=== PATIENT | male | born 1930 | race Caucasian/White ===

== ENCOUNTER 2016-08-27 14:26 | Emergency (ER) | payer MEDICARE, BC ==
--- NOTE | 2016-08-27 15:06 | EDM.PDOC ---
ED HPI ENT - General Chief Complaint: ENT Problem Stated Complaint: [id number] BLOODY NOSE CANT GET STOPPED Time Seen by Provider: 08/27/16 15:04 Source of Information: Reports: Patient History Limitations: Reports: No limitations - History of Present Illness INITIAL COMMENTS - FREE TEXT/NARRATIVE: Pt states that he has had left sided nasal bleeding since 11 am. Symptom Onset Date: 08/27/16 Timing/Duration: Reports: Constant Location: Reports: left nares Associated Symptoms: Reports: no other symptoms - Related Data Allergies/ADRs: Allergies Allergy/AdvReac Type Severity Reaction Status Date / Time alendronate sodium Allergy Nausea and Verified 08/27/16 14:31 [From Fosamax] Vomiting hydrochlorothiazide Allergy Cannot Verified 08/27/16 14:31 Remember oxybutynin Allergy Lethargy Verified 08/27/16 14:31 Sulfa (Sulfonamide Allergy Nausea and Verified 08/27/16 14:31 Antibiotics) Vomiting terazosin Allergy Cannot Verified 08/27/16 14:31 Remember Home Meds: Home Meds Calcium Carbonate/Vitamin D3 [Calcium 600 + Vit D Tablet] 1 each PO TID [History] Finasteride [Proscar] 5 mg PO DAILY 05/22/14 [History] Fosinopril [Monopril] 5 mg PO DAILY 05/22/14 [History] Iron Polysaccharides Complex [Ferrex 150] 150 mg PO DAILY 05/22/14 [History] Multivit-Min/FA/Lycopene/Lut [Centrum Silver] 1 each PO DAILY 05/22/14 [History] [place]-3S/DHA/Epa/Fish Oil/D3 [Fish Oil + D3 Softgel] 1 cap PO DAILY 05/22/14 [ History] Omeprazole Magnesium [Prilosec Otc] 20 mg PO DAILY 05/22/14 [History] Past Medical History Cardiovascular History: Reports: Hypertension Gastrointestinal History: Reports: GERD Genitourinary History: Reports: BPH Musculoskeletal History: Reports: Fracture Other Musculoskeletal History: pelvic, shoulder Oncologic (Cancer) History: Reports: Malignant melanoma - Infectious Disease History Infectious Disease History: Reports: Chicken pox - Past Surgical History HEENT Surgical History: Reports: Cataract surgery, Tonsillectomy Social & Family History - Family History Family Medical History: Noncontributory - Tobacco Use Smoking Status *Q: Former Smoker - Caffeine Use Caffeine Use: Reports: Coffee - Alcohol Use Days Per Week of Alcohol Use: 7 Number of Drinks Per Day: 1 Total Drinks Per Week: 7 - Recreational Drug Use Recreational Drug Use: No ED ROS ENT - Review of Systems Review Of Systems: See Below HEENT: Reports: Nosebleed ED EXAM, ENT - Physical Exam Exam: See Below Exam Limited By: No limitations General Appearance: alert, WD/WN, no apparent distress Nose: dried blood, injected turbinates, other (no active bleeding noted. ) Respiratory/Chest: no respiratory distress, lungs clear, normal breath sounds, no accessory muscle use, chest non-tender Cardiovascular: normal peripheral pulses, regular rate, rhythm, no edema, no gallop, no JVD, no murmur, no rub Course - Vital Signs Last Recorded V/S: Last Vital Signs Temp 97.9 F 08/27/16 14:32 Pulse 86 08/27/16 14:32 Resp 16 08/27/16 14:32 BP 170/94 H 08/27/16 15:47 Pulse Ox 96 08/27/16 14:32 - Orders/Labs/Meds Labs: Laboratory Tests 08/27/16 Range/Units 15:12 WBC 6.0 (5.0-10.0) 10^3/uL RBC 4.37 L (4.6-6.2) 10^6/uL Hgb 13.6 L (14.0-18.0) g/dL Hct 41.8 (40.0-54.0) % MCV 95.7 (80-100) fL MCH 31.1 (27.0-34.0) pg MCHC 32.5 L (33.0-35.0) g/dL Plt Count 147 L (150-450) 10^3/uL Neut % (Auto) 65.6 (42.2-75.2) % Lymph % (Auto) 19.5 L (20.5-50.1) % [place] % (Auto) 12.4 H (2-8) % Eos % (Auto) 2.2 (1.0-3.0) % Baso % (Auto) 0.3 (0.0-1.0) % Meds: Medications Discontinued Medications Generic Name Dose Route Start Last Admin Trade Name Freq PRN Reason Stop Dose Admin Clonidine HCl 0.1 mg 08/27/16 15:42 08/27/16 15:47 Catapres PO 08/27/16 15:43 0.1 mg ONETIME ONE Administration - Re-Assessments/Exams Free Text/Narrative Re-Assessment/Exam: 08/27/16 15:45 no epistaxis noted. no packing needed at present time Departure - Departure Time of Disposition: 15:45 Disposition: Home, Self-Care 01 Condition: good Clinical Impression: Epistaxis, recurrent Hypertension Qualifiers: Hypertension type: essential hypertension Qualified Code(s): I10 - Essential ( primary) hypertension Instructions: Nosebleed, Hypertension, [id number] Forms: ED Department Discharge Additional Instructions: Keep nasal passages moist with saline nasal spray. Return for any uncontrollable bleeding.
[2016-08-27 15:34] VITALS: BP 170/94
[2016-08-27] MEDS ORDERED: cloNIDine 0.1 MG Tab PO ONE (15:42)
== END 2016-08-27 15:58 | disposition home or self-care (01) ==
LOC: DL.ED 14:26
DX: R04.0 Epistaxis (principal); I10 Essential (primary) hypertension; K21.9 Gastro-esophageal reflux disease without esophagitis; Z98.49 Cataract extraction status, unspecified eye; Z98.890 Other specified postprocedural states; Z87.891 Personal history of nicotine dependence; Z88.2 Allergy status to sulfonamides; Z88.8 Allergy status to other drugs, medicaments and biological substances; Z79.899 Other long term (current) drug therapy
CPT/HCPCS: 36415; 85025; 99284; A9270; 99283

== ENCOUNTER 2016-09-02 08:39 | Emergency (ER) | payer MEDICARE, BC ==
[2016-09-02 08:46] VITALS: BP 187/88
[2016-09-02] MEDS ORDERED: Oxymetazoline 0.05% Nasal Spray 15 ML Bottle NAS ONE (08:51)
[2016-09-02] MEDS ORDERED: Lidocaine 1% with EPINEPHrine 1:100,000 20 ML MDV ONE (08:51)
--- NOTE | 2016-09-02 08:52 | EDM.PDOC ---
ED HPI ENT - General Chief Complaint: ENT Problem Stated Complaint: BLOODY NOSE Time Seen by Provider: 09/02/16 08:45 Source of Information: Reports: Patient, Old records, Provider (Dr. Waters), RN, RN notes reviewed History Limitations: Reports: No limitations - History of Present Illness INITIAL COMMENTS - FREE TEXT/NARRATIVE: Arrives from home by POV with c/o recurrent bleeding from the left nostril that began early this morning, and pt could not get it to stop. Pt reports recent ER and clinic visits for nose bleeds, but has not been evaluated by ENT yet. Denies any pain, injury, lightheadedness, N/V, or other Sx's. He does not take any anticoagulant medications. Symptom Onset Date: 09/02/16 Timing/Duration: Reports: Constant Location: Reports: nose Improves with: Reports: None Worsens with: Reports: None Associated Symptoms: Reports: no other symptoms Treatments FLEXIBLE NANNY: Reports: Home treatments - Related Data Allergies/ADRs: Allergies Allergy/AdvReac Type Severity Reaction Status Date / Time alendronate sodium Allergy Nausea and Verified 09/02/16 08:41 [From Fosamax] Vomiting hydrochlorothiazide Allergy Cannot Verified 09/02/16 08:41 Remember oxybutynin Allergy Lethargy Verified 09/02/16 08:41 Sulfa (Sulfonamide Allergy Nausea and Verified 09/02/16 08:41 Antibiotics) Vomiting terazosin Allergy Cannot Verified 09/02/16 08:41 Remember Home Meds: Home Meds Calcium Carbonate/Vitamin D3 [Calcium 600 + Vit D Tablet] 1 each PO TID [History] Finasteride [Proscar] 5 mg PO DAILY 05/22/14 [History] Fosinopril [Monopril] 5 mg PO DAILY 05/22/14 [History] Iron Polysaccharides Complex [Ferrex 150] 150 mg PO DAILY 05/22/14 [History] Multivit-Min/FA/Lycopene/Lut [Centrum Silver] 1 each PO DAILY 05/22/14 [History] [place]-3S/DHA/Epa/Fish Oil/D3 [Fish Oil + D3 Softgel] 1 cap PO DAILY 05/22/14 [ History] Omeprazole Magnesium [Prilosec Otc] 20 mg PO DAILY 05/22/14 [History] Past Medical History HEENT History: Reports: Epistaxis Cardiovascular History: Reports: Hypertension Respiratory History: Reports: None Gastrointestinal History: Reports: GERD Genitourinary History: Reports: BPH Musculoskeletal History: Reports: Fracture Other Musculoskeletal History: pelvic, shoulder Neurological History: Reports: None Psychiatric History: Reports: None Endocrine/Metabolic History: Reports: None Hematologic History: Reports: None Immunologic History: Reports: None Oncologic (Cancer) History: Reports: Malignant melanoma Dermatologic History: Reports: None - Infectious Disease History Infectious Disease History: Reports: Chicken pox - Past Surgical History HEENT Surgical History: Reports: Cataract surgery, Tonsillectomy Social & Family History - Family History Family Medical History: Noncontributory - Tobacco Use Smoking Status *Q: Never Smoker - Caffeine Use Caffeine Use: Reports: Coffee - Alcohol Use Days Per Week of Alcohol Use: 7 Number of Drinks Per Day: 1 Total Drinks Per Week: 7 - Recreational Drug Use Recreational Drug Use: No - Living Situation & Occupation Living situation: Reports: , with spouse Occupation: retired ED ROS ENT - Review of Systems Review Of Systems: ROS reveals no pertinent complaints other than HPI. ED EXAM, ENT - Physical Exam Exam: See Below Exam Limited By: No limitations General Appearance: alert, WD/WN, no apparent distress Eye Exam: bilateral eye: normal inspection Ears: normal external exam, hearing grossly normal Nose: active bleeding (left nare, unable to see source of bleeding, but visible blood flow from posterior nasal passage.) Mouth/Throat: Normal inspection Head: atraumatic, normocephalic Neck: normal inspection Respiratory/Chest: no respiratory distress, lungs clear Cardiovascular: regular rate, rhythm Neurological: alert, oriented, CN II-XII intact, normal cognition, normal gait, no motor/sensory deficits Psychiatric: normal mood Skin: Warm, Dry, Intact, Normal color, No rash ED ENT PROCEDURES - Epistaxis Procedure Indication: epistaxis, uncontrolled Recent anticoagulants/antiplatlets: Yes Uncontrolled HTN: No Recent septal/nasal surgery: No Site of bleeding: left nare, posterior Clearing of clots: patient blew nose Topical Meds: phenylephrine, other (with lidocaine 1% + Epi.) Ice pack to area: No Posterior packing: long inflatable nasal tampon Local anesthesia - Lidocaine (Xylocaine): 1% with epi Local anesthetic volume: 2cc Complications: No Course - Vital Signs Last Recorded V/S: Last Vital Signs Temp 36.2 C 09/02/16 08:42 Pulse 73 09/02/16 08:42 Resp 18 09/02/16 08:42 BP 187/88 H 09/02/16 08:42 Pulse Ox 97 09/02/16 08:42 - Orders/Labs/Meds Meds: Medications Discontinued Medications Generic Name Dose Route Start Last Admin Trade Name Anahy PRN Reason Stop Dose Admin Lidocaine/Epinephrine 10 ml 09/02/16 08:51 09/02/16 09:07 Xylocaine 1% With Epinephrine 1:100,000 .XX 09/02/16 08:52 10 ml ONETIME ONE Administration Oxymetazoline HCl 5 ml 09/02/16 08:51 09/02/16 09:07 Afrin Original 0.05% Nasal [place] VERONICA 09/02/16 08:52 5 ml ONETIME ONE Administration Departure - Departure Time of Disposition: 09:23 Disposition: Home, Self-Care 01 Condition: good Clinical Impression: Epistaxis, recurrent Instructions: Nosebleed, Lyme-so-Pcoj Forms: ED Department Discharge Additional Instructions: Do not remove the nasal packing yourself. Call Dr. Waters's office this morning to schedule an appointment for tomorrow afternoon.
== END 2016-09-02 09:51 | disposition home or self-care (01) ==
LOC: DL.ED 08:39
DX: R04.0 Epistaxis (principal); I10 Essential (primary) hypertension; K21.9 Gastro-esophageal reflux disease without esophagitis; Z98.49 Cataract extraction status, unspecified eye; Z98.890 Other specified postprocedural states; Z79.899 Other long term (current) drug therapy; Z88.2 Allergy status to sulfonamides; Z88.8 Allergy status to other drugs, medicaments and biological substances
CPT/HCPCS: 30905; 99283; A9270; 99282

== ENCOUNTER 2016-09-03 04:58 | Emergency (ER) | payer MEDICARE, BC ==
--- NOTE | 2016-09-03 05:27 | EDM.PDOC ---
<Roscoe Reynolds Brunilda - Last Filed: 09/03/16 05:33> ED HISTORY OF PRESENT ILLNESS - General Chief Complaint: Cardiovascular Problem Stated Complaint: HIGH BLOOD PRESSURE Time Seen by Provider: 09/03/16 05:10 Source of Information: Reports: Patient History Limitations: Reports: No limitations - History of Present Illness INITIAL COMMENTS - FREE TEXT/NARRATIVE: This 85 yo male patient reports to the ED with elevated blood pressure. The patient reports he took his blood pressure medications about 45 minutes prior to coming to the ED. The patient reports his blood pressure at home was 180/110 , but his blood pressure upon arrival was 144/89. Timing/Duration: Reports: Constant, Improving Severity: moderate Quality: Reports: Other Improves with: Reports: None Worsens with: Reports: None Associated Symptoms (General): Reports: no other symptoms - Related Data Allergies/ADRs: Allergies Allergy/AdvReac Type Severity Reaction Status Date / Time alendronate sodium Allergy Nausea and Verified 09/03/16 05:40 [From Fosamax] Vomiting hydrochlorothiazide Allergy Cannot Verified 09/03/16 05:40 Remember oxybutynin Allergy Lethargy Verified 09/03/16 05:40 Sulfa (Sulfonamide Allergy Nausea and Verified 09/03/16 05:40 Antibiotics) Vomiting terazosin Allergy Cannot Verified 09/03/16 05:40 Remember Home Meds: Home Meds Calcium Carbonate/Vitamin D3 [Calcium 600 + Vit D Tablet] 1 each PO TID [History] Finasteride [Proscar] 5 mg PO DAILY 05/22/14 [History] Fosinopril [Monopril] 10 mg PO DAILY 05/22/14 [History] Iron Polysaccharides Complex [Ferrex 150] 150 mg PO DAILY 05/22/14 [History] Multivit-Min/FA/Lycopene/Lut [Centrum Silver] 1 each PO DAILY 05/22/14 [History] [place]-3S/DHA/Epa/Fish Oil/D3 [Fish Oil + D3 Softgel] 1 cap PO DAILY 05/22/14 [ History] Omeprazole Magnesium [Prilosec Otc] 20 mg PO DAILY 05/22/14 [History] Past Medical History HEENT History: Reports: Epistaxis Cardiovascular History: Reports: Hypertension Respiratory History: Reports: None Gastrointestinal History: Reports: GERD Genitourinary History: Reports: BPH Musculoskeletal History: Reports: Fracture Other Musculoskeletal History: pelvic, shoulder Neurological History: Reports: None Psychiatric History: Reports: None Endocrine/Metabolic History: Reports: None Hematologic History: Reports: None Immunologic History: Reports: None Oncologic (Cancer) History: Reports: Malignant melanoma Dermatologic History: Reports: None - Infectious Disease History Infectious Disease History: Reports: Chicken pox - Past Surgical History HEENT Surgical History: Reports: Cataract surgery, Tonsillectomy Social & Family History - Family History Family Medical History: Noncontributory - Tobacco Use Smoking Status *Q: Never Smoker - Caffeine Use Caffeine Use: Reports: Coffee - Alcohol Use Days Per Week of Alcohol Use: 7 Number of Drinks Per Day: 1 Total Drinks Per Week: 7 - Recreational Drug Use Recreational Drug Use: No - Living Situation & Occupation Living situation: Reports: , with spouse Occupation: retired ED ROS GENERAL - Review of Systems Review Of Systems: ROS reveals no pertinent complaints other than HPI. ED EXAM, GENERAL - Physical Exam Exam: See Below Exam Limited By: No limitations General Appearance: alert, WD/WN, mild distress Eye Exam: bilateral eye: EOMI, normal inspection, PERRL Ears: normal external exam, normal canal, hearing grossly normal, normal TMs Nose: other (The patient has a chant[place] rocket in his left nostril which was placed yesterday in this ED. ) Throat/Mouth: Normal inspection, Normal lips, Normal teeth, Normal gums, Normal oropharynx, Normal voice, No airway compromise Head: atraumatic, normocephalic Neck: normal inspection, supple, non-tender, full range of motion Respiratory/Chest: no respiratory distress, lungs clear, normal breath sounds, no accessory muscle use, chest non-tender Cardiovascular: normal peripheral pulses, regular rate, rhythm, no edema, no gallop, no JVD, no murmur, no rub GI/Abdominal: normal bowel sounds, soft, non tender, no organomegaly, no distention, no abnormal bruit, no mass (Male) Exam: Deferred Rectal (Males) Exam: Deferred Back Exam: normal inspection, full range of motion, NT Extremities: normal inspection, normal range of motion, non-tender, normal capillary refill, no pedal edema Neurological: alert, oriented, CN II-XII intact, normal cognition, normal gait, normal reflexes, no motor/sensory deficits Psychiatric: normal affect, normal mood Skin Exam: Warm, Dry, Intact, Normal color, No rash Lymphatic: no adenopathy Course - Vital Signs Last Recorded V/S: Last Vital Signs Temp 36.3 C 09/03/16 05:06 Pulse 101 H 09/03/16 07:53 Resp 18 09/03/16 07:53 BP 150/100 H 09/03/16 07:53 Pulse Ox 97 09/03/16 07:53 Departure - Departure Disposition: Home, Self-Care 01 Clinical Impression: Hypertension Qualifiers: Hypertension type: essential hypertension Qualified Code(s): I10 - Essential ( primary) hypertension Forms: ED Department Discharge Additional Instructions: No medication changes advised at this time. Take all of your regular medications as prescribed. Follow up in clinic with Dr. Waters today as scheduled. <Winston Iglesias - Last Filed: 09/03/16 08:01> ED EXAM, GENERAL - Physical Exam Free Text/Narrative:: No changes to exam as documented by Roscoe PACHECO for this encounter. Course - Re-Assessments/Exams Free Text/Narrative Re-Assessment/Exam: 09/03/16 07:56 Pt reports feeling anxious since the nasal packing was placed yesterday. He has an appointment with Dr. Waters this afternoon. I explained to the pt that I do not recommend adding additional antihypertensive medications at this time given his advanced age and Hx of good BP control. The recent epistaxis, nasal packing, and anxiety likely have a significant impact on his recent mild to moderate elevation in BP. Pt denies any CP, SOB, palpitations, edema, or any other Sx's. Pt states that he feels much better after our discussion, and he agrees to F/U in clinic today with Dr. Waters as planned. Departure - Departure Time of Disposition: 08:00 Condition: good
== END 2016-09-03 08:15 | disposition home or self-care (01) ==
LOC: DL.ED 04:58
CPT/HCPCS: 99283

== ENCOUNTER 2019-06-30 23:45 | Emergency (ER) | payer MEDICARE, BC ==
[2019-06-30 23:54] VITALS: BP 130/80; PULSE 108
[2019-07-01] MEDS ORDERED: Phenazopyridine 95 MG Tab PO ONE (00:04)
--- NOTE | 2019-07-01 00:30 | EDM.PDOC ---
ED HPI GENERAL MEDICAL PROBLEM - General Chief Complaint: Genitourinary Problem Stated Complaint: KIDNEY INFECTION Time Seen by Provider: 07/01/19 00:05 Source of Information: Reports: Patient History Limitations: Reports: No Limitations - History of Present Illness INITIAL COMMENTS - FREE TEXT/NARRATIVE: she comes emergency department today with his family with concerns of dysuria and urinary frequency. Since yesterday he has had increased urination and is quite painful. He feels like he needs to be constantly and is not emptying his bladder. he has no discharge from his penis he has no pain in his testicles or mass. Has no fever chills abdominal pain nausea or vomiting. He denies any rectal pressor or pain or pain with defecation. He is not on any medication for bladder problems such as leaking or overactive. Penis Pain Score (Numeric/FACES): 2 - Related Data Allergies Allergy/AdvReac Type Severity Reaction Status Date / Time alendronate sodium Allergy Nausea and Verified 06/30/19 23:52 [From Fosamax] Vomiting hydrochlorothiazide Allergy Cannot Verified 06/30/19 23:52 Remember oxybutynin Allergy Lethargy Verified 06/30/19 23:52 Sulfa (Sulfonamide Allergy Nausea and Verified 06/30/19 23:52 Antibiotics) Vomiting terazosin Allergy Cannot Verified 06/30/19 23:52 Remember Home Meds: Home Meds Finasteride [Proscar] 5 mg PO DAILY 05/22/14 [History] Fosinopril [Monopril] 40 mg PO DAILY 05/22/14 [History] Omeprazole Magnesium [Prilosec Otc] 20 mg PO DAILY 05/22/14 [History] Lutein/Minerals/Vit A,C & E [I-Kemal] 1 tab PO DAILY 06/30/19 [History] Past Medical History HEENT History: Reports: Epistaxis Cardiovascular History: Reports: Hypertension Respiratory History: Reports: None Gastrointestinal History: Reports: GERD Genitourinary History: Reports: BPH Musculoskeletal History: Reports: Fracture Other Musculoskeletal History: pelvic, shoulder Neurological History: Reports: None Psychiatric History: Reports: None Endocrine/Metabolic History: Reports: None Hematologic History: Reports: None Immunologic History: Reports: None Oncologic (Cancer) History: Reports: Malignant Melanoma, Other (See Below) Other Oncologic History: skin Dermatologic History: Reports: None - Infectious Disease History Infectious Disease History: Reports: Chicken Pox - Past Surgical History HEENT Surgical History: Reports: Cataract Surgery, Tonsillectomy Social & Family History - Family History Family Medical History: Noncontributory - Tobacco Use Smoking Status *Q: Never Smoker - Caffeine Use Caffeine Use: Reports: Coffee - Recreational Drug Use Recreational Drug Use: No - Living Situation & Occupation Living situation: Reports: , with Spouse Occupation: Retired ED ROS GENERAL - Review of Systems Review Of Systems: Comprehensive ROS is negative, except as noted in HPI. ED EXAM, RENAL/ - Physical Exam Exam: See Below Exam Limited By: No Limitations General Appearance: Alert Respiratory/Chest: No Respiratory Distress, Lungs Clear, Normal Breath Sounds Cardiovascular: Normal Peripheral Pulses, Regular Rate, Rhythm GI/Abdominal: Normal Bowel Sounds, Soft, Non-Tender (Male) Exam: Deferred Rectal (Males) Exam: Deferred Back Exam: Normal Inspection. No: CVA Tenderness (L), CVA Tenderness (R) Extremities: Normal Inspection, Normal Range of Motion, Normal Capillary Refill Neurological: Alert, Oriented, Normal Cognition, No Motor/Sensory Deficits Psychiatric: Normal Affect Skin Exam: Warm, Dry, Intact, Normal Color, No Rash Course - Vital Signs Last Recorded V/S: Last Vital Signs Temp 37.4 C 06/30/19 23:50 Pulse 108 H 06/30/19 23:50 Resp 18 06/30/19 23:50 BP 130/80 06/30/19 23:50 Pulse Ox 97 06/30/19 23:50 - Orders/Labs/Meds Orders: Active Orders 24 hr Category Date Time Status CULTURE URINE [RM] Stat Lab 07/01/19 00:23 Received Labs: Laboratory Tests 07/01/19 Range/Units 00:23 Urine Color Yellow (YELLOW) Urine Appearance Cloudy (CLEAR) Urine pH 5.5 (5.0-9.0) Ur Specific [place] 1.025 (1.005-1.030) Urine Protein 100 H (NEGATIVE) Urine Glucose (UA) Negative (NEGATIVE) Urine Ketones Negative (NEGATIVE) Urine Occult Blood Large H (NEGATIVE) Urine Nitrite Negative (NEGATIVE) Urine Bilirubin Negative (NEGATIVE) Urine Urobilinogen 0.2 (0.2-1.0) mg/dL Ur Leukocyte Esterase Large H (NEGATIVE) Urine RBC 10-20 H /HPF Urine WBC >100 H (0-5/HPF) /HPF Ur Epithelial Cells Few (NOT SEEN) /HPF Urine Bacteria Moderate H (0-FEW/HPF) /HPF Urine Mucus Few H (NOT SEEN) /LPF Meds: Medications Discontinued Medications Generic Name Dose Route Start Last Admin Trade Name Anahy PRN Reason Stop Dose Admin Phenazopyridine HCl 95 mg 07/01/19 00:04 07/01/19 00:10 Urinary Pain Relief PO 07/01/19 00:05 95 mg ONETIME ONE Administration Departure - Departure Time of Disposition: 00:39 Disposition: Home, Self-Care 01 Clinical Impression: UTI, Urinary tract infectious disease - Discharge Information Instructions: Antibiotic Medicine, Adult, [id number], Urinary Tract Infection , Adult, [id number] Forms: ED Department Discharge Additional Instructions: Lots of fluids over the next few days. Tylenol for pain. Pyridium 1 tablet three times a day for the next 3 days. RX given to the patient #9. Cephalexin, 1 capsule 4 times a day for the next 7 days. RX given to the patient #28. Return to the ED if new or worsening symptoms. Follow up with PCP in the next 4-6 days if not improving sooner if worse. Sepsis Event Note - Evaluation Sepsis Screening Result: No Definite Risk - Focused Exam Vital Signs: Vital Signs Temp Pulse Resp BP Pulse Ox 06/30/19 23:50 37.4 C 108 H 18 130/80 97 Date Exam was Performed: 07/01/19 Time Exam was Performed: 00:36 - My Orders Last 24 Hours: My Active Orders 07/01/19 00:23 CULTURE URINE [RM] Stat - Assessment/Plan Last 24 Hours: My Active Orders 07/01/19 00:23 CULTURE URINE [RM] Stat Assessment:: UTI in male Plan: Lots of fluids over the next few days. Tylenol for pain. Pyridium 1 tablet three times a day for the next 3 days. RX given to the patient #9. Cephalexin, 1 capsule 4 times a day for the next 7 days. RX given to the patient #28. Return to the ED if new or worsening symptoms. Follow up with PCP in the next 4-6 days if not improving sooner if worse.
[2019-07-01] MEDS ORDERED: Cephalexin 500 MG Cap PO ONE ×2 (00:37→00:40)
== END 2019-07-01 00:46 | disposition home or self-care (01) ==
LOC: DL.ED 23:45
DX: N39.0 Urinary tract infection, site not specified (principal); I10 Essential (primary) hypertension; K21.9 Gastro-esophageal reflux disease without esophagitis; Z79.899 Other long term (current) drug therapy; Z88.2 Allergy status to sulfonamides; Z88.1 Allergy status to other antibiotic agents
CPT/HCPCS: 81001; 87086; 87088; 87186; 99283; A9270

== ENCOUNTER 2019-07-01 20:28 | Observation (INO) | payer MEDICARE, BC ==
[2019-07-01] MEDS ORDERED: Sodium Chloride 0.9% 10 ML Syringe FLUSH PRN ×2 (20:55→22:34)
[2019-07-01] MEDS ORDERED: Acetaminophen 325 MG Tab PO ONE (20:56)
[2019-07-01] MEDS ORDERED: Lactated Ringers 1,000 ML IV SCH ×2 (21:00→21:30)
[2019-07-01] MEDS ORDERED: Sodium Chloride 0.9% 250 ML IV SCH (21:00)
[2019-07-01] MEDS ORDERED: Ciprofloxacin in D5W 400 MG in Premix Bag 1 BAG IV ONE ×2 (21:19)
[2019-07-01] MEDS ORDERED: cefTRIAXone 2 GM in Sodium Chloride 0.9% 100 ML IV ONE (21:21)
--- NOTE | 2019-07-01 21:25 | EDM.PDOC ---
ED HPI GENERAL MEDICAL PROBLEM - General Chief Complaint: Genitourinary Problem Stated Complaint: FEVER, UTI Time Seen by Provider: 07/01/19 21:15 Source of Information: Reports: Patient History Limitations: Reports: No Limitations - History of Present Illness INITIAL COMMENTS - FREE TEXT/NARRATIVE: patient comes emergency department for the second night in a row with complaints of urinary frequency and urgency but now he has developed fever chills and weakness. I saw this patient myself last night in the emergency department where he had isolated urinary frequency and dysuria. He was without any systemic complaints. He was started on Pyridium and cephalexin. Today at home he developed weakness nausea fever and flank pain. No abdominal pain. No nausea or vomiting. No diarrhea. No cough or congestion. It is difficult for him to be at home he has little appetite.He has not taken anything for his fever. Penis Pain Score (Numeric/FACES): 3 - Related Data Allergies Allergy/AdvReac Type Severity Reaction Status Date / Time alendronate sodium Allergy Nausea and Verified 07/01/19 20:31 [From Fosamax] Vomiting hydrochlorothiazide Allergy Cannot Verified 07/01/19 20:31 Remember oxybutynin Allergy Lethargy Verified 07/01/19 20:31 Sulfa (Sulfonamide Allergy Nausea and Verified 07/01/19 20:31 Antibiotics) Vomiting terazosin Allergy Cannot Verified 07/01/19 20:31 Remember Home Meds: Home Meds Finasteride [Proscar] 5 mg PO DAILY 05/22/14 [History] Fosinopril [Monopril] 40 mg PO DAILY 05/22/14 [History] Omeprazole Magnesium [Prilosec Otc] 20 mg PO DAILY 05/22/14 [History] Lutein/Minerals/Vit A,C & E [I-Kemal] 1 tab PO DAILY 06/30/19 [History] Past Medical History HEENT History: Reports: Epistaxis Cardiovascular History: Reports: Hypertension Respiratory History: Reports: None Gastrointestinal History: Reports: GERD Genitourinary History: Reports: BPH Musculoskeletal History: Reports: Fracture Other Musculoskeletal History: pelvic, shoulder Neurological History: Reports: None Psychiatric History: Reports: None Endocrine/Metabolic History: Reports: None Hematologic History: Reports: None Immunologic History: Reports: None Oncologic (Cancer) History: Reports: Malignant Melanoma, Other (See Below) Other Oncologic History: skin Dermatologic History: Reports: None - Infectious Disease History Infectious Disease History: Reports: Chicken Pox - Past Surgical History HEENT Surgical History: Reports: Cataract Surgery, Tonsillectomy Social & Family History - Family History Family Medical History: Noncontributory - Tobacco Use Smoking Status *Q: Never Smoker - Caffeine Use Caffeine Use: Reports: Coffee - Recreational Drug Use Recreational Drug Use: No - Living Situation & Occupation Living situation: Reports: , with Spouse Occupation: Retired ED ROS GENERAL - Review of Systems Review Of Systems: Comprehensive ROS is negative, except as noted in HPI. ED EXAM, RENAL/ - Physical Exam Exam: See Below Exam Limited By: No Limitations General Appearance: Alert, WD/WN, No Apparent Distress Throat/Mouth: Other (oral mucosa is dry) Head: Atraumatic, Normocephalic Neck: Normal Inspection, Supple, Non-Tender Respiratory/Chest: No Respiratory Distress, Lungs Clear, Normal Breath Sounds Cardiovascular: Normal Peripheral Pulses, Regular Rate, Rhythm GI/Abdominal: Normal Bowel Sounds, Soft, Non-Tender (Male) Exam: Deferred Rectal (Males) Exam: Deferred Back Exam: Normal Inspection. No: CVA Tenderness (L), CVA Tenderness (R) Extremities: Normal Inspection, Normal Range of Motion Neurological: Alert, Oriented, Normal Cognition, No Motor/Sensory Deficits. No : Confused Psychiatric: Normal Affect Skin Exam: Warm, Dry, Intact, Normal Color Course - Vital Signs Last Recorded V/S: Last Vital Signs Temp 37.3 C 07/01/19 22:34 Pulse 100 07/01/19 22:34 Resp 16 07/01/19 22:34 BP 110/54 L 07/01/19 22:34 Pulse Ox 97 07/01/19 22:34 - Orders/Labs/Meds Orders: Active Orders 24 hr Category Date Time Status Peripheral IV Care [RC] . DIRECTED Care 07/01/19 20:55 Active CULTURE BLOOD [BC] Stat Lab 07/01/19 21:05 Received CULTURE BLOOD [BC] Stat Lab 07/01/19 21:21 Received Sodium Chloride 0.9% [Normal Saline] 250 ml Med 07/01/19 21:00 Active IV ASDIRECTED Sodium Chloride 0.9% [Saline Flush] Med 07/01/19 20:55 Active 10 ml FLUSH ASDIRECTED PRN Blood Culture x2 Reflex Set [OM.PC] Stat Oth 07/01/19 20:55 Ordered Peripheral IV Insertion Adult [OM.PC] Stat Oth 07/01/19 20:55 Ordered Medication Orders Acetaminophen (Tylenol) 650 mg PO Q4H PRN PRN Reason: Pain (Mild 1-3)/fever Albuterol (Proventil Neb Soln) 2.5 mg NEB Q2H PRN PRN Reason: shortness of breath/wheezing Docusate Sodium (Colace) 100 mg PO BID PRN PRN Reason: Constipation Enoxaparin Sodium (Lovenox) 40 mg SUBCUT DAILY EDIE Finasteride (Proscar) 5 mg PO DAILY EDIE Sodium Chloride (Normal Saline) 250 mls @ 999 mls/hr IV ASDIRECTED EDIE Sodium Chloride (Normal Saline) 1,000 mls @ 100 mls/hr IV ASDIRECTED EDIE Stop: 07/02/19 08:46 Ceftriaxone Sodium 1 gm/ (Sodium Chloride) 50 mls @ 50 mls/hr IV Q24H EDIE Multivitamins/Minerals (I-Kemal) 1 each PO DAILY [facility] Non-Formulary Medication (Omeprazole Magnesium [Prilosec Otc]) 20 mg PO DAILY EDIE Ondansetron HCl (Zofran Odt) 4 mg PO Q4H PRN PRN Reason: nausea, able to take PO Sodium Chloride (Saline Flush) 10 ml FLUSH ASDIRECTED PRN PRN Reason: Keep Vein Open Sodium Chloride (Saline Flush) 10 ml FLUSH ASDIRECTED PRN PRN Reason: Keep Vein Open Zolpidem Tartrate (Ambien) 5 mg PO BEDTIME PRN PRN Reason: Sleep Labs: Laboratory Tests 07/01/19 07/01/19 07/01/19 Range/Units 21:05 21:05 21:05 WBC 17.8 H (5.0-10.0) 10^3/uL RBC 4.42 L (4.6-6.2) 10^6/uL Hgb 13.4 L (14.0-18.0) g/dL Hct 41.2 (40.0-54.0) % MCV 93.2 (80-100) fL MCH 30.3 (27.0-34.0) pg MCHC 32.5 L (33.0-35.0) g/dL Plt Count 131 L (150-450) 10^3/uL Neut % (Auto) 85.1 H (42.2-75.2) % Lymph % (Auto) 4.5 L (20.5-50.1) % [place] % (Auto) 10.3 H (2-8) % Eos % (Auto) 0.0 L (1.0-3.0) % Baso % (Auto) 0.1 (0.0-1.0) % Sodium 128 L (135-145) mmol/L Potassium 4.1 (3.6-5.0) mmol/L Chloride 97 L (101-111) mmol/L Carbon Dioxide 23.0 (21.0-31.0) mmol/L Anion Gap 12.1 BUN 16 (7-18) mg/dL Creatinine 0.9 (0.6-1.3) mg/dL Est Cr Clr Drug Dosing 52.02 mL/min Estimated GFR (MDRD) > 60 BUN/Creatinine Ratio 17.77 Glucose 137 H (74-105) mg/dL Lactic Acid 0.9 (0.5-2.0) mmol/L Calcium 7.9 L (8.4-10.2) mg/dl Total Bilirubin 1.2 H (0.2-1.0) mg/dL AST 19 (10-42) IU/L ALT 17 (10-60) IU/L Alkaline Phosphatase 42 (42-121) IU/L C-Reactive Protein (0.0-1.3) mg/dL Total Protein 6.8 (6.7-8.2) g/dl Albumin 3.5 (3.2-5.5) g/dl Globulin 3.3 Albumin/Globulin Ratio 1.06 /06/19 Range/Units 21:05 WBC (5.0-10.0) 10^3/uL RBC (4.6-6.2) 10^6/uL Hgb (14.0-18.0) g/dL Hct (40.0-54.0) % MCV (80-100) fL MCH (27.0-34.0) pg MCHC (33.0-35.0) g/dL Plt Count (150-450) 10^3/uL Neut % (Auto) (42.2-75.2) % Lymph % (Auto) (20.5-50.1) % [place] % (Auto) (2-8) % Eos % (Auto) (1.0-3.0) % Baso % (Auto) (0.0-1.0) % Sodium (135-145) mmol/L Potassium (3.6-5.0) mmol/L Chloride (101-111) mmol/L Carbon Dioxide (21.0-31.0) mmol/L Anion Gap BUN (7-18) mg/dL Creatinine (0.6-1.3) mg/dL Est Cr Clr Drug Dosing mL/min Estimated GFR (MDRD) BUN/Creatinine Ratio Glucose (74-105) mg/dL Lactic Acid (0.5-2.0) mmol/L Calcium (8.4-10.2) mg/dl Total Bilirubin (0.2-1.0) mg/dL AST (10-42) IU/L ALT (10-60) IU/L Alkaline Phosphatase (42-121) IU/L C-Reactive Protein 16.0 H (0.0-1.3) mg/dL Total Protein (6.7-8.2) g/dl Albumin (3.2-5.5) g/dl Globulin Albumin/Globulin Ratio Meds: Medications Generic Name Dose Route Start Last Admin Trade Name Freq PRN Reason Stop Dose Admin Acetaminophen 650 mg 07/02/19 01:30 Tylenol PO Q4H PRN Pain (Mild 1-3)/fever Albuterol 2.5 mg 07/01/19 22:34 Proventil Neb Soln NEB Q2H PRN shortness of breath/wheezing Docusate Sodium 100 mg 07/01/19 22:34 Colace PO BID PRN Constipation Enoxaparin Sodium 40 mg 07/02/19 09:00 Lovenox SUBCUT DAILY EDIE Finasteride 5 mg 07/02/19 09:00 Proscar PO DAILY EDIE Sodium Chloride 250 mls @ 999 mls/hr 07/01/19 21:00 Normal Saline IV ASDIRECTED EDIE Sodium Chloride 1,000 mls @ 100 mls/hr 07/01/19 22:45 Normal Saline IV 07/02/19 08:46 ASDIRECTED EDIE Ceftriaxone Sodium 1 gm/ 50 mls @ 50 mls/hr 07/02/19 20:00 Sodium Chloride IV Q24H EDIE Multivitamins/Minerals 1 each 07/02/19 09:00 I-Kemal PO DAILY [facility] Non-Formulary Medication 20 mg 07/02/19 09:00 Omeprazole Magnesium [Prilosec Otc] PO DAILY [facility] Ondansetron HCl 4 mg 07/01/19 22:34 Zofran Odt PO Q4H PRN nausea, able to take PO Sodium Chloride 10 ml 07/01/19 20:55 Saline Flush FLUSH ASDIRECTED PRN Keep Vein Open Sodium Chloride 10 ml 07/01/19 22:34 Saline Flush FLUSH ASDIRECTED PRN Keep Vein Open Zolpidem Tartrate 5 mg 07/01/19 22:34 Ambien PO BEDTIME PRN Sleep Discontinued Medications Generic Name Dose Route Start Last Admin Trade Name Freq PRN Reason Stop Dose Admin Acetaminophen 650 mg 07/01/19 20:56 07/01/19 21:24 Tylenol PO 07/01/19 20:57 650 mg NOW ONE Administration Lactated Ringer's 1,000 mls @ 150 mls/hr 07/01/19 21:00 Ringers, Lactated IV ASDIRECTED [facility] Ciprofloxacin/Dextrose 400 mg/ 200 mls @ 200 mls/hr 07/01/19 21:19 07/01/19 22:20 Premix IV 07/01/19 22:18 200 mls/hr ONETIME ONE Administration Ceftriaxone Sodium 2 gm/ 100 mls @ 200 mls/hr 07/01/19 21:21 07/01/19 21:50 Sodium Chloride IV 07/01/19 21:50 200 mls/hr ONETIME ONE Administration Lactated Ringer's 1,000 mls @ 100 mls/hr 07/01/19 21:30 Ringers, Lactated IV ASDIRECTED [facility] Sodium Chloride 1,000 mls @ 100 mls/hr 07/01/19 21:45 07/01/19 21:51 Normal Saline IV 100 mls/hr ASDIRECTED [facility] Administration - Re-Assessments/Exams Free Text/Narrative Re-Assessment/Exam: 07/01/19 21:27 labs to include blood cultures urine culture pending from last night. NS 250mls bolus then LR @100mls/hr. Ceftriaxone 2 grams IVP Cipro 400mg IVPB. 07/02/19 01:05 With the WBC fever no lactic acidosis, weakness and tachycardia. I called and spoke with Dr. Fleming the hospitalist substation engineer here at [facility]. [facility] ER COURSE findings and concerns were relayed to him. His questions were answered and he accepted the patient into the hospital under his care here for further care and evaluation. I did review the findings and concerns with the patient and his family. They are comfortable with the plan and their questions answered. Departure - Departure Time of Disposition: 23:50 Disposition: Refer to Observation Clinical Impression: UTI (urinary tract infection) Qualifiers: Urinary tract infection type: site unspecified Hematuria presence: without hematuria Qualified Code(s): N39.0 - Urinary tract infection, site not specified Leukocytosis Qualifiers: Leukocytosis type: unspecified Qualified Code(s): D72.829 - Elevated white blood cell count, unspecified - Discharge Information Sepsis Event Note - Evaluation Sepsis Screening Result: No Definite Risk - Focused Exam Vital Signs: Vital Signs Temp Pulse Resp BP Pulse Ox 07/01/19 20:42 37.8 C 119 H 17 130/82 94 L Date Exam was Performed: 07/02/19 Time Exam was Performed: 01:05 - My Orders Last 24 Hours: My Active Orders 07/01/19 20:55 Peripheral IV Care [RC] . DIRECTED Sodium Chloride 0.9% [Saline Flush] 10 ml FLUSH ASDIRECTED PRN Blood Culture x2 Reflex Set [OM.PC] Stat Peripheral IV Insertion Adult [OM.PC] Stat 07/01/19 21:00 Sodium Chloride 0.9% [Normal Saline] 250 ml IV ASDIRECTED 07/01/19 21:05 CULTURE BLOOD [BC] Stat 07/01/19 21:21 CULTURE BLOOD [BC] Stat - Assessment/Plan Last 24 Hours: My Active Orders 07/01/19 20:55 Peripheral IV Care [RC] . DIRECTED Sodium Chloride 0.9% [Saline Flush] 10 ml FLUSH ASDIRECTED PRN Blood Culture x2 Reflex Set [OM.PC] Stat Peripheral IV Insertion Adult [OM.PC] Stat 07/01/19 21:00 Sodium Chloride 0.9% [Normal Saline] 250 ml IV ASDIRECTED 07/01/19 21:05 CULTURE BLOOD [BC] Stat 07/01/19 21:21 CULTURE BLOOD [BC] Stat
[2019-07-01 21:37] LABS: ANION GAP 12.1; CHLORIDE,CL 97 mmol/L (101-111); SODIUM,NA 128 mmol/L (135-145)
[2019-07-01] MEDS: Sodium Chloride 0.9% 1,000 ML IV SCH (21:51)
[2019-07-01] MEDS ORDERED: Zolpidem 5 MG Tab PO PRN (22:34)
[2019-07-01] MEDS ORDERED: Albuterol 0.083% 2.5 MG/3 ML Neb Soln NEB PRN (22:34)
[2019-07-01] MEDS ORDERED: Ondansetron 4 MG Tab.DIS PO PRN (22:34)
[2019-07-01] MEDS ORDERED: Docusate Sodium 100 MG Cap PO PRN (22:34)
--- NOTE | 2019-07-01 22:42 | PCM.HP ---
H&P History of Present Illness - General Date of Service: 07/01/19 Admit Problem/Dx: Admission Diagnosis/Problem Admission Diagnosis/Problem Urinary tract infection Source of Information: Patient, Family History Limitations: Reports: No Limitations - History of Present Illness Initial Comments - Free Text/Narative: Pipo Clemons is an 88y.o male with a medical history of hypertension who presented with pain with fever, urination and frequency. Patient developed dysuria and frequency a few days ago. He presented to the ED were his urinalysis was positive for UTI. He was discharged on Pyridium and Keflex. Today, his symptoms became worse and he developed fever with chills. He denies nausea, emesis, abdominal pain, flank pain, chest pain, shortness of breath, cough or palpitation. He denies penile discharge. He has become very weak and has not eaten today due to loss of appetite. Family brought him to the ED. His vitals were significant for temperature of 100.1 and tachycardia of 119. Labs showed leukocytosis of 17.8 and hyponatremia of 128. Patient received 2 gm of ceftriaxone and IV cipro; 250 cc of NS bolus. Penis Pain Score (Numeric/FACES): 3 - Related Data Allergies/Adverse Reactions: Allergies Allergy/AdvReac Type Severity Reaction Status Date / Time alendronate sodium Allergy Nausea and Verified 07/01/19 20:31 [From Fosamax] Vomiting hydrochlorothiazide Allergy Cannot Verified 07/01/19 20:31 Remember oxybutynin Allergy Lethargy Verified 07/01/19 20:31 Sulfa (Sulfonamide Allergy Nausea and Verified 07/01/19 20:31 Antibiotics) Vomiting terazosin Allergy Cannot Verified 07/01/19 20:31 Remember Home Medications: Home Meds Finasteride [Proscar] 5 mg PO DAILY 05/22/14 [History] Fosinopril [Monopril] 40 mg PO DAILY 05/22/14 [History] Omeprazole Magnesium [Prilosec Otc] 20 mg PO DAILY 05/22/14 [History] Lutein/Minerals/Vit A,C & E [I-Kemal] 1 tab PO DAILY 06/30/19 [History] Past Medical History HEENT History: Reports: Epistaxis Cardiovascular History: Reports: Hypertension Respiratory History: Reports: None Gastrointestinal History: Reports: GERD Genitourinary History: Reports: BPH Musculoskeletal History: Reports: Fracture Other Musculoskeletal History: pelvic, shoulder Neurological History: Reports: None Psychiatric History: Reports: None Endocrine/Metabolic History: Reports: None Hematologic History: Reports: None Immunologic History: Reports: None Oncologic (Cancer) History: Reports: Malignant Melanoma, Other (See Below) Other Oncologic History: skin Dermatologic History: Reports: None - Infectious Disease History Infectious Disease History: Reports: Chicken Pox - Past Surgical History HEENT Surgical History: Reports: Cataract Surgery, Tonsillectomy Social & Family History - Family History Family Medical History: Noncontributory - Tobacco Use Smoking Status *Q: Never Smoker - Caffeine Use Caffeine Use: Reports: Coffee - Recreational Drug Use Recreational Drug Use: No - Living Situation & Occupation Living situation: Reports: , with Spouse Occupation: Retired H&P Review of Systems - Review of Systems: Review Of Systems: See Below General: Reports: Fever, Chills, Malaise HEENT: Reports: No Symptoms Pulmonary: Reports: No Symptoms Cardiovascular: Reports: No Symptoms Gastrointestinal: Reports: No Symptoms Genitourinary: Reports: Dysuria, Frequency. Denies: Flank Pain Musculoskeletal: Reports: No Symptoms Skin: Reports: No Symptoms Psychiatric: Reports: No Symptoms Neurological: Reports: No Symptoms Hematologic/Lymphatic: Reports: No Symptoms Immunologic: Reports: No Symptoms Exam - Exam Exam: See Below - Vital Signs Vital Signs: Last Vital Signs Temp 100.1 F 07/01/19 20:42 Pulse 119 H 07/01/19 20:42 Resp 17 07/01/19 20:42 BP 130/82 07/01/19 20:42 Pulse Ox 94 L 07/01/19 20:42 Weight: 191 lb 11.2 oz - Exam General: Alert, Oriented, 4 HEENT: PERRLA, Hearing Intact, Mucosa Moist & [place], Nares Patent, Normal Nasal Septum, Posterior Pharynx Clear, Conjunctiva Clear, EOMI, EACs Clear, TMs Clear Neck: Supple, Trachea Midline, 2 Lungs: Clear to Auscultation, Normal Respiratory Effort Cardiovascular: Regular Rate, Regular Rhythm GI/Abdominal Exam: Normal Bowel Sounds, Soft, Non-Tender, No Organomegaly, No Distention, No Abnormal Bruit, No Mass, Pelvis Stable (Male) Exam: Deferred Rectal (Males) Exam: Deferred Back Exam: Normal Inspection, Full Range of Motion, NT Extremities: Normal Inspection, Normal Range of Motion, Non-Tender, No Pedal Edema, Normal Capillary Refill Skin: Warm, Dry, Intact Neurological: Cranial Nerves Intact, Reflexes Equal Bilateral Neuro Extensive - Mental Status: Alert, Oriented x3, Normal Mood/Affect, Normal Cognition Neuro Extensive - Motor, Sensory, Reflexes: CN II-XII Intact, Normal Gait, Normal Reflexes Psychiatric: Alert, Normal Affect, Normal Mood - Patient Data Lab Results Last 24 hrs: Laboratory Results - last 24 hr 07/01/19 07/01/19 07/01/19 Range/Units 21:05 21:05 21:05 WBC 17.8 H (5.0-10.0) 10^3/uL RBC 4.42 L (4.6-6.2) 10^6/uL Hgb 13.4 L (14.0-18.0) g/dL Hct 41.2 (40.0-54.0) % MCV 93.2 (80-100) fL MCH 30.3 (27.0-34.0) pg MCHC 32.5 L (33.0-35.0) g/dL Plt Count 131 L (150-450) 10^3/uL Neut % (Auto) 85.1 H (42.2-75.2) % Lymph % (Auto) 4.5 L (20.5-50.1) % [place] % (Auto) 10.3 H (2-8) % Eos % (Auto) 0.0 L (1.0-3.0) % Baso % (Auto) 0.1 (0.0-1.0) % Sodium 128 L (135-145) mmol/L Potassium 4.1 (3.6-5.0) mmol/L Chloride 97 L (101-111) mmol/L Carbon Dioxide 23.0 (21.0-31.0) mmol/L Anion Gap 12.1 BUN 16 (7-18) mg/dL Creatinine 0.9 (0.6-1.3) mg/dL Est Cr Clr Drug Dosing 52.02 mL/min Estimated GFR (MDRD) > 60 BUN/Creatinine Ratio 17.77 Glucose 137 H (74-105) mg/dL Lactic Acid 0.9 (0.5-2.0) mmol/L Calcium 7.9 L (8.4-10.2) mg/dl Total Bilirubin 1.2 H (0.2-1.0) mg/dL AST 19 (10-42) IU/L ALT 17 (10-60) IU/L Alkaline Phosphatase 42 (42-121) IU/L C-Reactive Protein (0.0-1.3) mg/dL Total Protein 6.8 (6.7-8.2) g/dl Albumin 3.5 (3.2-5.5) g/dl Globulin 3.3 Albumin/Globulin Ratio 1.06 /06/19 Range/Units 21:05 WBC (5.0-10.0) 10^3/uL RBC (4.6-6.2) 10^6/uL Hgb (14.0-18.0) g/dL Hct (40.0-54.0) % MCV (80-100) fL MCH (27.0-34.0) pg MCHC (33.0-35.0) g/dL Plt Count (150-450) 10^3/uL Neut % (Auto) (42.2-75.2) % Lymph % (Auto) (20.5-50.1) % [place] % (Auto) (2-8) % Eos % (Auto) (1.0-3.0) % Baso % (Auto) (0.0-1.0) % Sodium (135-145) mmol/L Potassium (3.6-5.0) mmol/L Chloride (101-111) mmol/L Carbon Dioxide (21.0-31.0) mmol/L Anion Gap BUN (7-18) mg/dL Creatinine (0.6-1.3) mg/dL Est Cr Clr Drug Dosing mL/min Estimated GFR (MDRD) BUN/Creatinine Ratio Glucose (74-105) mg/dL Lactic Acid (0.5-2.0) mmol/L Calcium (8.4-10.2) mg/dl Total Bilirubin (0.2-1.0) mg/dL AST (10-42) IU/L ALT (10-60) IU/L Alkaline Phosphatase (42-121) IU/L C-Reactive Protein 16.0 H (0.0-1.3) mg/dL Total Protein (6.7-8.2) g/dl Albumin (3.2-5.5) g/dl Globulin Albumin/Globulin Ratio Result Diagrams: 07/01/19 21:05 07/01/19 21:05 Problem List Initiated/Reviewed/Updated: Yes Orders Last 24hrs: Active Orders 24 hr Category Date Time Status Admission Diagnosis [ADT] Stat ADT 07/01/19 22:13 Ordered Admission Status [Patient Status] [ADT] Routine ADT 07/01/19 22:13 Active Patient Status [ADT] Routine ADT 07/01/19 22:34 Ordered Intake and Output [RC] QSHIFT Care 07/01/19 22:36 Ordered Oxygen Therapy [RC] PRN Care 07/01/19 22:34 Ordered Peripheral IV Care [RC] . DIRECTED Care 07/01/19 20:55 Active RT Aerosol Therapy [RC] ASDIRECTED Care 07/01/19 22:38 Ordered Up With Assistance [RC] ASDIRECTED Care 07/01/19 22:34 Ordered VTE/DVT Education [RC] PER UNIT ROUTINE Care 07/01/19 22:34 Ordered Vital Signs [RC] Q4H Care 07/01/19 22:34 Ordered Regular Diet [DIET] Diet 07/02/19 Breakfast Ordered BASIC METABOLIC PANEL,BMP [CHEM] AM Lab 07/02/19 05:11 Ordered BASIC METABOLIC PANEL,BMP [CHEM] AM Lab 07/03/19 05:11 Ordered CBC W/O DIFF,HEMOGRAM [HEME] AM Lab 07/02/19 05:11 Ordered CBC W/O DIFF,HEMOGRAM [HEME] AM Lab 07/03/19 05:11 Ordered CBC W/O DIFF,HEMOGRAM [HEME] AM Lab 07/04/19 05:11 Ordered CULTURE BLOOD [BC] Stat Lab 07/01/19 21:05 Received CULTURE BLOOD [BC] Stat Lab 07/01/19 21:21 Received MAGNESIUM [CHEM] AM Lab 07/02/19 05:11 Ordered Acetaminophen [Tylenol] Med 07/01/19 22:34 Ordered 650 mg PO Q4H PRN Albuterol [Proventil Neb Soln] Med 07/01/19 22:34 Ordered 2.5 mg NEB Q2H PRN Docusate Sodium [Colace] Med 07/01/19 22:34 Ordered 100 mg PO BID PRN Enoxaparin [Lovenox] Med 07/02/19 09:00 Ordered 30 mg SUBCUT DAILY Finasteride [Proscar] Med 07/02/19 09:00 Ordered 5 mg PO DAILY Lutein/Minerals/Vit A,C & E [I-Kemal] Med 07/02/19 09:00 Ordered 1 each PO DAILY Omeprazole Magnesium [Prilosec Otc] Med 07/02/19 09:00 Ordered 20 mg PO DAILY Ondansetron [Zofran ODT] Med 07/01/19 22:34 Ordered 4 mg PO Q4H PRN Sodium Chloride 0.9% [Normal Saline] 1,000 ml Med 07/01/19 21:45 Active IV ASDIRECTED Sodium Chloride 0.9% [Normal Saline] 1,000 ml Med 07/01/19 22:45 Ordered IV ASDIRECTED Sodium Chloride 0.9% [Normal Saline] 250 ml Med 07/01/19 21:00 Active IV ASDIRECTED Sodium Chloride 0.9% [Saline Flush] Med 07/01/19 20:55 Active 10 ml FLUSH ASDIRECTED PRN Sodium Chloride 0.9% [Saline Flush] Med 07/01/19 22:34 Ordered 10 ml FLUSH ASDIRECTED PRN Zolpidem [Ambien] Med 07/01/19 22:34 Ordered 5 mg PO BEDTIME PRN cefTRIAXone [Rocephin] 1 gm Med 07/02/19 20:00 Ordered Sodium Chloride 0.9% [Normal Saline] 50 ml IV Q24H Blood Culture x2 Reflex Set [OM.PC] Stat Ot 07/01/19 20:55 Ordered Peripheral IV Insertion Adult [OM.PC] Stat Ot 07/01/19 20:55 Ordered Saline Lock Insert [OM.PC] Routine Oth 07/01/19 22:34 Ordered Resuscitation Status Routine Resus Stat 07/01/19 22:34 Ordered Medication Orders Acetaminophen (Tylenol) 650 mg PO Q4H PRN PRN Reason: Pain (Mild 1-3)/fever Albuterol (Proventil Neb Soln) 2.5 mg NEB Q2H PRN PRN Reason: shortness of breath/wheezing Docusate Sodium (Colace) 100 mg PO BID PRN PRN Reason: Constipation Enoxaparin Sodium (Lovenox) 30 mg SUBCUT DAILY EDIE Finasteride (Proscar) 5 mg PO DAILY EDIE Sodium Chloride (Normal Saline) 250 mls @ 999 mls/hr IV ASDIRECTED [facility] Sodium Chloride (Normal Saline) 1,000 mls @ 100 mls/hr IV ASDIRECTED [facility] Last Admin: 07/01/19 21:51 Dose: 100 mls/hr Sodium Chloride (Normal Saline) 1,000 mls @ 100 mls/hr IV ASDIRECTED [facility] Stop: 07/02/19 08:46 Ceftriaxone Sodium 1 gm/ (Sodium Chloride) 50 mls @ 50 mls/hr IV Q24H [facility] Multivitamins/Minerals (I-Kemal) 1 each PO DAILY [facility] Non-Formulary Medication (Omeprazole Magnesium [Prilosec Otc]) 20 mg PO DAILY [facility] Ondansetron HCl (Zofran Odt) 4 mg PO Q4H PRN PRN Reason: nausea, able to take PO Sodium Chloride (Saline Flush) 10 ml FLUSH ASDIRECTED PRN PRN Reason: Keep Vein Open Sodium Chloride (Saline Flush) 10 ml FLUSH ASDIRECTED PRN PRN Reason: Keep Vein Open Zolpidem Tartrate (Ambien) 5 mg PO BEDTIME PRN PRN Reason: Sleep Assessment/Plan Comment:: Urinary tract infection Elderly male presenting with low grade temp of 100.1, chills, tachycardia, dysuria, frequency. Recent positive UA yesterday, who appears to be failing outpatient oral antibiotics. Probably in early sepsis. - Continue ceftriaxone daily - Await urine culture - IVF NS at 100 cc/h - Await blood cultures Hypertension - Hold antihypertensives for now BPH - Resume home finasteride
[2019-07-01] MEDS ORDERED: Sodium Chloride 0.9% 1,000 ML IV SCH (22:45)
[2019-07-02] MEDS ORDERED: Acetaminophen 325 MG Tab PO PRN (01:30)
[2019-07-02] MEDS ORDERED: Morphine 2 MG/ML Syringe IVPUSH PRN (03:04)
[2019-07-02] MEDS ORDERED: [UNRECOGNIZED DRUG - OTHER] IV SCH (04:00)
[2019-07-02] MEDS ORDERED: VANCOMYCIN IV SCH (04:00)
[2019-07-02 07:18] LABS: ANION GAP 12.8; CHLORIDE,CL 99 mmol/L (101-111); SODIUM,NA 131 mmol/L (135-145)
[2019-07-02] MEDS ORDERED: Lutein/Minerals/Vit A,C & E Tab PO SCH (09:00)
[2019-07-02] MEDS ORDERED: Enoxaparin 40 MG/0.4 ML Syringe SUBCUT SCH (09:00)
[2019-07-02] MEDS ORDERED: Finasteride 5 MG Tab PO SCH (09:00)
[2019-07-02] MEDS ORDERED: Sodium Chloride 0.9% 1,000 ML IV ONE (10:00)
[2019-07-02] MEDS: Sodium Chloride 0.9% 1,000 ML IV SCH (10:04)
--- NOTE | 2019-07-02 10:09 | PCM.DCSUM1 ---
Discharge Summary - Hospital Course Free Text/Narrative:: Pipo Clemons is an 88y.o male with a medical history of hypertension who presented with pain with fever, urination and frequency. Patient developed dysuria and frequency a few days ago. He presented to the ED on 06/30/2019, were his urinalysis was positive for UTI. He was discharged on Pyridium and Keflex. On 07/01/2019, his symptoms became worse and he developed fever with chills. He denied nausea, emesis, abdominal pain, flank pain, chest pain, shortness of breath, cough or palpitation. Family brought him to the ED. His vitals were significant for temperature of 100.1 and tachycardia of 119. Labs showed leukocytosis of 17.8 and hyponatremia of 128. Patient received 2 gm of ceftriaxone and IV cipro; 250 cc of NS bolus. He was admitted for UTI with failed outpatient oral antibiotics and probable early sepsis. Overnight, his scrotum became more painful, swollen and red. Vancomycin was started. 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 Discharge diagnoses Urinary tract infection Orchitis Hypertension Probable sepsis BPH - Discharge Data Discharge Date: 07/02/19 Discharge Disposition: DC/Tfer to Acute Hospital 02 Condition: Good - Referral to Home Health Primary Care Physician: Lorenzo Waters MD - Patient Instructions Diet: Regular Diet as Tolerated - Discharge Plan *PRESCRIPTION DRUG MONITORING PROGRAM REVIEWED*: Not Applicable *COPY OF PRESCRIPTION DRUG MONITORING REPORT IN PATIENT CIARRA: Not Applicable Home Medications: Home Meds Finasteride [Proscar] 5 mg PO DAILY 05/22/14 [History] Fosinopril [Monopril] 40 mg PO DAILY 05/22/14 [History] Omeprazole Magnesium [Prilosec Otc] 20 mg PO DAILY 05/22/14 [History] Lutein/Minerals/Vit A,C & E [I-Kemal] 1 tab PO DAILY 06/30/19 [History] Forms: ED Department Discharge Referrals: PCP,Unobtain [Ordering Only Provider] - 07/07/19 (Lorenzo Waters MD) - Discharge Summary/Plan Comment DC Time >30 min.: Yes - General Info Date of Service: 07/02/19 Admission Dx/Problem (Free Text: Admission Diagnosis/Problem Admission Diagnosis/Problem Orchitis and urinary tract infection Functional Status: Reports: Pain Controlled - Review of Systems General: Reports: No Symptoms HEENT: Reports: No Symptoms Pulmonary: Reports: No Symptoms Cardiovascular: Reports: No Symptoms Gastrointestinal: Reports: No Symptoms Genitourinary: Reports: Dysuria, Frequency, Pain, Other (Scrotal swelling and redness) Musculoskeletal: Reports: No Symptoms Skin: Reports: Rash (Scrotal redness) Neurological: Reports: No Symptoms Psychiatric: Reports: No Symptoms - Patient Data Vitals - Most Recent: Last Vital Signs Temp 99.5 F 07/02/19 08:00 Pulse 98 07/02/19 08:00 Resp 18 07/02/19 08:00 BP 117/65 07/02/19 08:00 Pulse Ox 96 07/02/19 08:00 Weight - Most Recent: 191 lb 11.2 oz I&O - Last 24 hours: Intake & Output 07/01/19 07/02/19 07/02/19 22:59 06:59 14:59 Intake Total 600 Output Total 300 200 Balance 300 -200 Lab Results - Last 24 hrs: Laboratory Results - last 24 hr 07/01/19 07/01/19 07/01/19 Range/Units 21:05 21:05 21:05 WBC 17.8 H (5.0-10.0) 10^3/uL RBC 4.42 L (4.6-6.2) 10^6/uL Hgb 13.4 L (14.0-18.0) g/dL Hct 41.2 (40.0-54.0) % MCV 93.2 (80-100) fL MCH 30.3 (27.0-34.0) pg MCHC 32.5 L (33.0-35.0) g/dL Plt Count 131 L (150-450) 10^3/uL Neut % (Auto) 85.1 H (42.2-75.2) % Lymph % (Auto) 4.5 L (20.5-50.1) % Hughes % (Auto) 10.3 H (2-8) % Eos % (Auto) 0.0 L (1.0-3.0) % Baso % (Auto) 0.1 (0.0-1.0) % Sodium 128 L (135-145) mmol/L Potassium 4.1 (3.6-5.0) mmol/L Chloride 97 L (101-111) mmol/L Carbon Dioxide 23.0 (21.0-31.0) mmol/L Anion Gap 12.1 BUN 16 (7-18) mg/dL Creatinine 0.9 (0.6-1.3) mg/dL Est Cr Clr Drug Dosing 52.02 mL/min Estimated GFR (MDRD) > 60 BUN/Creatinine Ratio 17.77 Glucose 137 H (74-105) mg/dL Lactic Acid 0.9 (0.5-2.0) mmol/L Calcium 7.9 L (8.4-10.2) mg/dl Magnesium (1.8-2.5) mg/dL Total Bilirubin 1.2 H (0.2-1.0) mg/dL AST 19 (10-42) IU/L ALT 17 (10-60) IU/L Alkaline Phosphatase 42 (42-121) IU/L C-Reactive Protein (0.0-1.3) mg/dL Total Protein 6.8 (6.7-8.2) g/dl Albumin 3.5 (3.2-5.5) g/dl Globulin 3.3 Albumin/Globulin Ratio 1.06 07/01/19 07/02/19 07/02/19 Range/Units 21:05 06:00 06:00 WBC 14.9 H (5.0-10.0) 10^3/uL RBC 3.99 L (4.6-6.2) 10^6/uL Hgb 12.1 L (14.0-18.0) g/dL Hct 37.2 L (40.0-54.0) % MCV 93.2 (80-100) fL MCH 30.3 (27.0-34.0) pg MCHC 32.5 L (33.0-35.0) g/dL Plt Count 119 L (150-450) 10^3/uL Neut % (Auto) (42.2-75.2) % Lymph % (Auto) (20.5-50.1) % Hughes % (Auto) (2-8) % Eos % (Auto) (1.0-3.0) % Baso % (Auto) (0.0-1.0) % Sodium 131 L (135-145) mmol/L Potassium 3.8 (3.6-5.0) mmol/L Chloride 99 L (101-111) mmol/L Carbon Dioxide 23.0 (21.0-31.0) mmol/L Anion Gap 12.8 BUN 16 (7-18) mg/dL Creatinine 1.0 (0.6-1.3) mg/dL Est Cr Clr Drug Dosing 46.82 mL/min Estimated GFR (MDRD) > 60 BUN/Creatinine Ratio Glucose 137 H (74-105) mg/dL Lactic Acid (0.5-2.0) mmol/L Calcium 7.7 L (8.4-10.2) mg/dl Magnesium 1.7 L (1.8-2.5) mg/dL Total Bilirubin (0.2-1.0) mg/dL AST (10-42) IU/L ALT (10-60) IU/L Alkaline Phosphatase (42-121) IU/L C-Reactive Protein 16.0 H (0.0-1.3) mg/dL Total Protein (6.7-8.2) g/dl Albumin (3.2-5.5) g/dl Globulin Albumin/Globulin Ratio Med Orders - Current: Current Medications Acetaminophen (Tylenol) 650 mg PO Q4H PRN PRN Reason: Pain (Mild 1-3)/fever Last Admin: 07/02/19 02:30 Dose: 650 mg Albuterol (Proventil Neb Soln) 2.5 mg NEB Q2H PRN PRN Reason: shortness of breath/wheezing Docusate Sodium (Colace) 100 mg PO BID PRN PRN Reason: Constipation Enoxaparin Sodium (Lovenox) 40 mg SUBCUT DAILY [facility] Ceftriaxone Sodium 1 gm/ (Sodium Chloride) 50 mls @ 50 mls/hr IV Q24H [facility] Vancomycin HCl (Vancomycin 1 Gm/200 Ml Premix) 100 mls @ 100 mls/hr IV Q12H [facility] Last Admin: 07/02/19 03:27 Dose: 100 mls/hr Morphine Sulfate (Morphine) 2 mg IVPUSH Q2H PRN PRN Reason: Pain (severe 7-10) Last Admin: 07/02/19 03:15 Dose: 2 mg Multivitamins/Minerals (I-Kemal) 1 each PO DAILY [facility] Ondansetron HCl (Zofran Odt) 4 mg PO Q4H PRN PRN Reason: nausea, able to take PO (Omeprazole Magnesium [Prilosec Otc] 20 Mg)*Pt Own Med* 0 each PO ACBREAKFAST EDIE Finasteride 5 Mg Tab (*Pt Own Med*) 0 each PO DAILY [facility] Sodium Chloride (Saline Flush) 10 ml FLUSH ASDIRECTED PRN PRN Reason: Keep Vein Open Sodium Chloride (Saline Flush) 10 ml FLUSH ASDIRECTED PRN PRN Reason: Keep Vein Open Vancomycin HCl (Pharmacy To Dose - Vancomycin) 1 dose .XX ASDIRECTED EDIE Zolpidem Tartrate (Ambien) 5 mg PO BEDTIME PRN PRN Reason: Sleep Discontinued Medications Acetaminophen (Tylenol) 650 mg PO NOW ONE Stop: 07/01/19 20:57 Last Admin: 07/01/19 21:24 Dose: 650 mg Finasteride (Proscar) 5 mg PO DAILY [facility] Lactated Ringer's (Ringers, Lactated) 1,000 mls @ 150 mls/hr IV ASDIRECTED EDIE Sodium Chloride (Normal Saline) 250 mls @ 999 mls/hr IV ASDIRECTED EDIE Ciprofloxacin/Dextrose 400 mg/ (Premix) 200 mls @ 200 mls/hr IV ONETIME ONE Stop: 07/01/19 22:18 Last Admin: 07/01/19 22:20 Dose: 200 mls/hr Ceftriaxone Sodium 2 gm/ (Sodium Chloride) 100 mls @ 200 mls/hr IV ONETIME ONE Stop: 07/01/19 21:50 Last Admin: 07/01/19 21:50 Dose: 200 mls/hr Lactated Ringer's (Ringers, Lactated) 1,000 mls @ 100 mls/hr IV ASDIRECTED EDIE Sodium Chloride (Normal Saline) 1,000 mls @ 100 mls/hr IV ASDIRECTED EDIE Last Admin: 07/02/19 10:04 Dose: 100 mls/hr Sodium Chloride (Normal Saline) 1,000 mls @ 100 mls/hr IV ASDIRECTED EDIE Stop: 07/02/19 08:46 - Exam General: Reports: Alert, Oriented HEENT: Reports: Pupils Equal, Pupils Reactive, EOMI, Mucous Membr. Moist/[place] Neck: Reports: Supple Lungs: Reports: Clear to Auscultation, Normal Respiratory Effort Cardiovascular: Reports: Regular Rate, Regular Rhythm GI/Abdominal Exam: Normal Bowel Sounds, Soft, Non-Tender, No Organomegaly, No Distention, No Abnormal Bruit, No Mass, Pelvis Stable (Male) Exam: Rash, Scrotal Swelling, Scrotum Tenderness (L), Scrotum Tenderness (R), Testicular Tenderness (L), Testicular Tenderness (R) Rectal (Males) Exam: Deferred Back Exam: Reports: Normal Inspection, Full Range of Motion Extremities: Normal Inspection, Normal Range of Motion, Non-Tender, No Pedal Edema, Normal Capillary Refill Skin: Reports: Warm, Dry, Intact Neurological: Reports: No New Focal Deficit Psy/Mental Status: Reports: Alert, Normal Affect, Normal Mood
[2019-07-02] MEDS: FINASTERIDE 5 MG PO SCH ×2 (10:18→14:54)
[2019-07-02 11:48] VITALS: BP 120/53; PULSE 108
[2019-07-02] MEDS ORDERED: cefTRIAXone 1 GM in Sodium Chloride 0.9% 50 ML IV SCH (20:00)
== END 2019-07-02 11:15 ==
LOC: DL.ED 20:28 → DL.MS 22:13
PROVIDERS: ADMIT Internal Medicine; ATTEND Internal Medicine
DX: N39.0 Urinary tract infection, site not specified (principal); N45.2 Orchitis; I10 Essential (primary) hypertension; N40.1 Benign prostatic hyperplasia with lower urinary tract symptoms; R35.0 Frequency of micturition; K21.9 Gastro-esophageal reflux disease without esophagitis; Z88.2 Allergy status to sulfonamides; Z88.8 Allergy status to other drugs, medicaments and biological substances; Z79.899 Other long term (current) drug therapy
CPT/HCPCS: 36415; 71046; 80048; 80053; 83605; 83735; 85025; 85027; 86140; 87040; A9270-GY; J0696; J0744; J2270; J3370; J7030; J7050